=== PATIENT | male | born 1995 | race Caucasian/White ===

== ENCOUNTER 2016-12-07 03:03 | Emergency (ER) | payer OTHER ==
[~2016-12-07] VITALS: Ht 177.8 cm; Wt 108.4 kg
[2016-12-07 03:06] VITALS: Ht 177.8 cm; Wt 108.4 kg
[2016-12-07] MEDS ORDERED: AMPH5CAP PO (03:20)
[2016-12-07] MEDS ORDERED: AMPH30CA3 PO (03:20)
[2016-12-07 04:26] LABS: BUN/CREATININE RATIO 11.9 (10-20); CALCIUM 8.9 mg/dl (8.5-10.1); CREATININE 1.23 mg/dl (0.60-1.40); POTASSIUM 3.8 mmol/L (3.5-5.1)
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
[2016-12-07 09:17] VITALS: BP 110/62; PULSE 72; O2SAT 96
== END 2016-12-07 11:04 | disposition home or self-care (01) ==
LOC: C.EDC 03:06
DX: F10.920 Alcohol use, unspecified with intoxication, uncomplicated (principal); Y90.7 Blood alcohol level of 200-239 mg/100 ml